=== PATIENT | male | born 1945 | race Caucasian/White ===

== ENCOUNTER 2017-05-26 19:26 | Observation (INO) ==
[2017-05-26] MEDS ORDERED: 0.9 % Sodium Chloride 1,000 ML IVC ONE (19:38)
[2017-05-26] MEDS ORDERED: Famotidine 20 MG/2 ML VIAL IVP ONE (19:39)
[2017-05-26] MEDS ORDERED: Pantoprazole 40 MG in 0.9 % Sodium Chloride Mini Bag 100 ML IVC SCH (19:45)
--- NOTE | 2017-05-26 19:57 | Emergency Department Note ---
Disposition Clinical Impression: Gastroenteritis, Drug-induced nausea and vomiting Disposition: Admitted As Inpatient Condition: Fair Referrals: NONE,PCP [Primary Care Provider] - Forms: ED Satisfaction Letter Time of Disposition: 21:13 (admit [facility] fariha) Nausea/Vomiting/Diarrhea HPI - General Chief complaint: ED Nausea/Vomiting/Diarrhea Stated complaint: vomiting and dizzy Time Seen by Provider: 05/26/17 19:30 Source: patient Limitations: no limitations - History of Present Illness HPI Narrative: [id number] male who is traveling from one facility to his home in [facility] when he became lightheaded and dizzy started having episodes of vomiting denies any chest pain chest pressure coughed up some black tarry-type vomitus material denies any blurred vision double vision loss vision denies numbness tingling or weakness denies any additional complaints Pt Subjective Complaint: nausea, vomiting Onset (ago): hour(s) (2) Description of emesis: food contents, blood-streaked, bloody Number of episodes of emesis: 3 Associated Abdominal Pain: No Worsens with: nonthing Associated symptoms: Reports: nausea/vomiting. Denies: myalgias, chest pain, cough, diaphoresis, fever/chills, headaches, loss of appetite, rash, dysuria, shortness of breath, syncope, weakness - Related Data Allergies Allergy/AdvReac Type Severity Reaction Status Date / Time No Known Allergies Allergy Verified 05/26/17 19:41 All systems ED: reviewed and negative except as stated. Constitutional: Denies: fever ENT ED: Denies: throat pain Cardiovascular: Denies: chest pain Respiratory: Denies: cough, dyspnea Gastrointestinal: Reports: nausea, vomiting. Denies: abdominal pain, diarrhea Genitourinary: Denies: urgency, dysuria Integumentary: Denies: rash Past Medical History - Past Medical History Medical history: Reports: hyperlipidemia Psychiatric history: Reports: no psych history - Social History Smoking Status: Former smoker Smokeless Tobacco Status: No Alcohol use: Reports: none Drug use: Reports: marijuana Physical Exam - General Limitations: no limitations General appearance: alert - Eye Eye exam: Absent: scleral icterus, conjunctival injection - ENT ENT exam: normal oropharynx, mucous membranes moist, TM's normal bilaterally - Respiratory Respiratory exam: Present: normal lung sounds bilaterally - Cardiovascular Cardiovascular exam: Present: regular rate, normal rhythm - Abdominal Exam Abdominal exam: Present: soft, Non-Tender. Absent: guarding, rebound - Psychiatric Psychiatric exam: Present: normal affect - Skin Skin exam: Present: warm, intact Course Course Narrative: Arrival did have coffee-ground emesis. He was started on Pepcid and Protonix. Labs were ordered care was transferred to Dr. Barros. - Reevaluation(s) Reevaluation #1: Patient had no further episodes of vomiting here in the emergency room he is alert answers questions probably does not appear to be dizzy at this time he is thin and frail does appear to be" though he is not feeling well denies any chest pain on my examination has little epigastric discomfort his skin is warm and dry pupils round there is tympanic membranes are pink and moist supple trachea is midline chest clear to observation heart regular rate and rhythm abdomen soft supple no guarding or rebound rigidity no pulsatile mass that the patient be admitted for observation services of Dr. Lakhani for monitoring if he does start developing acute vomiting blood we will transfer him at that time Vital Signs Temperature 97.5 F L 05/26/17 19:27 Pulse Rate 76 05/26/17 19:27 Respiratory Rate 20 05/26/17 19:27 Blood Pressure 141/86 05/26/17 19:27 O2 Sat by Pulse Oximetry 100 05/26/17 19:27 Temperature 97.5 F L 05/26/17 19:27 Pulse Rate 74 05/26/17 20:32 Respiratory Rate 20 05/26/17 20:32 Blood Pressure 137/90 05/26/17 20:32 O2 Sat by Pulse Oximetry 75 05/26/17 20:32 Oxygen Delivery Oxygen Delivery Room Air Nausea/Vomiting/Diarrhea - Lab Data Result diagrams: 05/26/17 19:59 05/26/17 19:59 Lab Results 05/26/17 05/26/17 05/26/17 Range/Units 19:59 19:59 19:59 WBC 15.0 H (4.3-11.1) K/mcL RBC 4.41 (4.19-5.50) M/mcL Hgb 13.4 (12.9-16.9) g/dL Hct 39.5 (37.5-50.1) % MCV 89.6 (83.0-100.0) fL MCH 30.4 (28.0-33.3) pg MCHC 33.9 (31.6-35.5) g/dL RDW 13.2 (11.5-14.5) % Plt Count 313 (140-400) K/mcL MPV 8.4 L (9.4-12.4) fL Immature Gran % 0.8 (0-4) % Seg Neutrophils % 75.7 % Lymphocytes % 16.4 % Monocytes % 6.1 % Eosinophils % 0.7 % Basophils % 0.3 % Neutrophils # 11.4 H (1.6-8.9) K/mcL Lymphocytes # 2.5 (0.6-4.6) K/mcL Monocytes # 0.9 (0.0-1.3) K/mcL Eosinophils # 0.1 (0.0-0.6) K/mcL Basophils # 0.1 (0.0-0.2) K/mcL PT 11.3 (9.4-12.1) Seconds INR 1.1 APTT 26.0 (26.0-36.0) Seconds Sodium 137 (136-145) mEq/L Potassium 3.5 (3.5-5.1) mEq/L Chloride 104 (98-107) mEq/L Carbon Dioxide 21 L (23-29) mEq/L BUN 18 (8-23) mg/dL Creatinine 1.16 (0.70-1.30) mg/dL Est GFR ( Amer) > 60 (> 60) Est GFR (Non-Af Amer) > 60 (> 60) BUN/Creatinine Ratio 16 (6-26) Glucose 172 H (70-105) mg/dL Calculated Osmolality 290 (280-300) Calcium 9.3 (8.6-10.3) mg/dL Total Bilirubin 0.6 (0.3-1.0) mg/dL AST 23 (13-39) Units/L ALT 20 (7-52) Units/L Alkaline Phosphatase 59 (34-104) Units/L Serum Total Protein 7.0 (6.4-8.9) g/dL Albumin 4.2 (3.5-5.7) g/dL Globulin 2.8 (2.4-3.5) g/dL Albumin/Globulin Ratio 1.5 (1.1-2.2) Lipase (11-82) Units/L 05/26/17 Range/Units 19:59 WBC (4.3-11.1) K/mcL RBC (4.19-5.50) M/mcL Hgb (12.9-16.9) g/dL Hct (37.5-50.1) % MCV (83.0-100.0) fL MCH (28.0-33.3) pg MCHC (31.6-35.5) g/dL RDW (11.5-14.5) % Plt Count (140-400) K/mcL MPV (9.4-12.4) fL Immature Gran % (0-4) % Seg Neutrophils % % Lymphocytes % % Monocytes % % Eosinophils % % Basophils % % Neutrophils # (1.6-8.9) K/mcL Lymphocytes # (0.6-4.6) K/mcL Monocytes # (0.0-1.3) K/mcL Eosinophils # (0.0-0.6) K/mcL Basophils # (0.0-0.2) K/mcL PT (9.4-12.1) Seconds INR APTT (26.0-36.0) Seconds Sodium (136-145) mEq/L Potassium (3.5-5.1) mEq/L Chloride (98-107) mEq/L Carbon Dioxide (23-29) mEq/L BUN (8-23) mg/dL Creatinine (0.70-1.30) mg/dL Est GFR ( Amer) (> 60) Est GFR (Non-Af Amer) (> 60) BUN/Creatinine Ratio (6-26) Glucose (70-105) mg/dL Calculated Osmolality (280-300) Calcium (8.6-10.3) mg/dL Total Bilirubin (0.3-1.0) mg/dL AST (13-39) Units/L ALT (7-52) Units/L Alkaline Phosphatase (34-104) Units/L Serum Total Protein (6.4-8.9) g/dL Albumin (3.5-5.7) g/dL Globulin (2.4-3.5) g/dL Albumin/Globulin Ratio (1.1-2.2) Lipase 24 (11-82) Units/L S.B.A.R. - S.B.A.R. Transition of Care: Dr Gao Background: Presenting Complaint, Relevant PMH, Meds, & Allergies Assessment: Vital Signs, Course and respsone to treatment, Exam Concerns Recommendation: Barrier(s) to disposition, Recommendation based on pending studies, treatments, or consults Will Repor Time: 19:59
[2017-05-26 20:06] LABS: Basophils # 0.1 K/mcL (0.0-0.2); Basophils % 0.3 %; Eosinophils # 0.1 K/mcL (0.0-0.6); Eosinophils % 0.7 %; Hematocrit 39.5 % (37.5-50.1); Hemoglobin 13.4 g/dL (12.9-16.9); Immature Granulocytes % 0.8 % (0-4); Lymphocytes # 2.5 K/mcL (0.6-4.6); Lymphocytes % 16.4 %; Mean Corpuscular HGB Conc 33.9 g/dL (31.6-35.5); Mean Corpuscular Hemoglobin 30.4 pg (28.0-33.3); Mean Corpuscular Volume 89.6 fL (83.0-100.0); Mean Platelet Volume 8.4 fL (9.4-12.4); Monocytes # 0.9 K/mcL (0.0-1.3); Monocytes % 6.1 %; Neutrophils # 11.4 K/mcL (1.6-8.9); Platelet Count 313 K/mcL (140-400); Red Blood Count 4.41 M/mcL (4.19-5.50); Red Cell Distribution Width 13.2 % (11.5-14.5); Segmented Neutrophils % 75.7 %
[2017-05-26 20:12] LABS: INR 1.1; Prothrombin Time 11.3 Seconds (9.4-12.1)
[2017-05-26 20:24] LABS: Alanine Aminotransferase 20 Units/L (7-52); Albumin 4.2 g/dL (3.5-5.7); Albumin/Globulin Ratio 1.5 (1.1-2.2); Alkaline Phosphatase 59 Units/L (34-104); Aspartate Amino Transferase 23 Units/L (13-39); BUN/Creatinine Ratio 16 (6-26); Bilirubin,Total 0.6 mg/dL (0.3-1.0); Blood Urea Nitrogen 18 mg/dL (8-23); Calcium 9.3 mg/dL (8.6-10.3); Carbon Dioxide 21 mEq/L (23-29); Chloride 104 mEq/L (98-107); Globulin 2.8 g/dL (2.4-3.5); Glucose 172 mg/dL (70-105); Osmolality,Calculated 290 (280-300); Potassium 3.5 mEq/L (3.5-5.1); Sodium 137 mEq/L (136-145); eGFR For Non-African Americans > 60 (> 60)
[2017-05-26] MEDS ORDERED: Naloxone 0.4 MG/ML INJ IVP PRN (21:59)
[2017-05-26] MEDS ORDERED: 0.9 % Sodium Chloride 1,000 ML IVC SCH (21:59)
[2017-05-26] MEDS: Pantoprazole 40 MG in 0.9 % Sodium Chloride Mini Bag 100 ML IVC SCH (23:21)
[2017-05-26] MEDS: Ondansetron 4 MG/2 ML VIAL IVP SCH (23:29)
[2017-05-27] MEDS: Pantoprazole 40 MG in 0.9 % Sodium Chloride Mini Bag 100 ML IVC SCH ×2 (02:40→10:37)
[2017-05-27] MEDS: Ondansetron 4 MG/2 ML VIAL IVP SCH ×2 (03:19→10:37)
[2017-05-27] MEDS ORDERED: Famotidine 20 MG/2 ML VIAL IVP SCH (06:00)
[2017-05-27 06:37] VITALS: BP 122/72
[2017-05-27 09:10] LABS: Basophils % 0.4 %; Eosinophils # 0.1 K/mcL (0.0-0.6); Eosinophils % 0.6 %; Hematocrit 39.9 % (37.5-50.1); Immature Granulocytes % 0.4 % (0-4); Mean Corpuscular HGB Conc 32.6 g/dL (31.6-35.5); Mean Corpuscular Hemoglobin 29.9 pg (28.0-33.3); Mean Corpuscular Volume 91.7 fL (83.0-100.0); Mean Platelet Volume 8.7 fL (9.4-12.4); Monocytes # 0.8 K/mcL (0.0-1.3); Monocytes % 7.4 %; Neutrophils # 7.6 K/mcL (1.6-8.9); Platelet Count 313 K/mcL (140-400); Red Blood Count 4.35 M/mcL (4.19-5.50); Red Cell Distribution Width 13.5 % (11.5-14.5); Segmented Neutrophils % 72.2 %
[2017-05-27 10:59] LABS: BUN/Creatinine Ratio 13 (6-26); Blood Urea Nitrogen 14 mg/dL (8-23); Calcium 8.5 mg/dL (8.6-10.3); Carbon Dioxide 26 mEq/L (23-29); Chloride 108 mEq/L (98-107); Glucose 116 mg/dL (70-105); Osmolality,Calculated 291 (280-300); Potassium 3.7 mEq/L (3.5-5.1); Sodium 140 mEq/L (136-145); eGFR For Non-African Americans > 60 (> 60)
--- NOTE | 2017-05-27 11:52 | Internal Med History&Physical ---
Date of Encounter: 05/27/17 Time of Encounter: 11:25 Assessment and Plan (1) Gastroenteritis Current visit: Yes Status: Acute He has been started on IV fluids. Antiemetics will be given as needed. Internal Medicine - H&P: [facility] Chief complaint: Vomiting Admitted From: Emergency Dept Plans for Post Hospital Care: Home History of present illness: Mr. Alegria is a 71 year old male who came to the emergency room by squad after he became nauseated and had several episodes of vomiting while driving to his home in [facility] from [place]. He noted at least one of the episodes of vomiting had dark material but not obviously blood. He was evaluated in emergency room and found to have leukocytosis with minimal left shift. He was admitted to [facility] floor for ongoing care needs. He reports he had a similar but less severe episode of nausea without vomiting approximately 2 weeks ago. He reports occasional ibuprofen use but none for the last 4-5 days. He has not had documented peptic ulcer disease. He states he has not drunk alcohol in 30 years. He denies disorders of his liver gallbladder or exocrine pancreas. He states he feels back to his baseline now and wishes to be discharged home. Past Med Surg Social Fam HX - Past Medical History Medical history: hyperlipidemia Psychiatric history: no psych history - Social History Smoking Status: Former smoker Smokeless Tobacco Status: No Alcohol use: none Drug use: marijuana Internal Medicine - H&P: Meds 3 Allergy/AdvReac Type Severity Reaction Status Date / Time No Known Allergies Allergy Verified 05/26/17 19:41 All Systems PM: A 10-system review of systems was performed and is negative for pertinent findings except as documented above in the HPI. Review of systems: Gen.: His weight has been stable the past few months Cardiovascular: He denies [place] hypertension heart failure angina DVT or pulmonary embolus Respiratory: He smoked from age [age] up to 1 pack per day. He has had PFTs and was told he had COPD but does not use home oxygen. Reports he has had a "spot" on his lung that has been followed by [facility] with regular CT scans. 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 He denies gout or other bone joint or muscle disorders. - Constitutional Vitals: Temp Pulse Resp BP Pulse Ox 97.5 F L 68 17 122/72 97 05/27/17 06:36 05/27/17 06:36 05/27/17 06:36 05/27/17 06:36 05/27/17 06:36 Exam: Gen.: He is a well-developed well-nourished male resting In bed who appears in no acute distress at present time HEENT: Head is atraumatic and normocephalic. Eyes: EOMI. There is no scleral icterus. Mouth: Mucosa is moist. Neck: Supple and nontender. There is no thyromegaly or adenopathy noted. Heart: Regular without murmurs gallops or ectopics Lungs: No wheezes or crackles are heard. Abdomen: Soft and nontender. No masses or guarding are noted. Extremities: There is no cyanosis edema or clubbing noted. Dorsalis pedis and posttibial pulses are 1-2 over 2 bilaterally. Neurologic: Mental status: He is talkative and a good historian. Cranial nerves : Smile is symmetric. Forehead wrinkles bilaterally. Tongue protrudes midline. EOMI. Motor: There is no pronator drift. Cerebellar: Finger to nose is intact bilaterally. Skin: Warm and dry Internal Med - H&P Results - Labs CBC & Chem 7: 05/27/17 07:50 05/27/17 07:50 Labs: Short CBC 05/27/17 Range/Units 07:50 WBC 10.6 (4.3-11.1) K/mcL Hgb 13.0 (12.9-16.9) g/dL Hct 39.9 (37.5-50.1) % Plt Count 313 (140-400) K/mcL Neutrophils # 7.6 (1.6-8.9) K/mcL BMP 05/27/17 07:50 Sodium 140 Potassium 3.7 Chloride 108 H Carbon Dioxide 26 BUN 14 Creatinine 1.05 Glucose 116 H Calcium 8.5 L Cardiac Enzymes 05/27/17 05/27/17 Range/Units 01:45 07:50 Troponin I < 0.03 < 0.03 (< 0.04) ng/mL
--- NOTE | 2017-05-27 11:59 | Discharge Summary ---
Date of Encounter: 05/27/17 Time of Encounter: 11:25 - Discharge Diagnosis (1) Gastroenteritis Priority: Primary Status: Acute - Discharge Medications Allergies/Adverse Reactions: 3 Allergy/AdvReac Type Severity Reaction Status Date / Time No Known Allergies Allergy Verified 05/26/17 19:41 Date of admission: 05/26/17 21:21 Primary care physician: PCP NONE - Patient Status Disposition: Home, Self-Care Condition: Fair Functional capacity at discharge: independent ambulation Overall status at discharge: patient is progressing back to baseline - Discharge Instructions Follow Up With: NONE,PCP [Primary Care Provider] - 1 week - Diet and Activity Activity: resume usual activities as tolerated Diet: advance to your usual diet Hospital course: Mr. Alegria is a 71 year old male who came to the emergency room by squad after he became nauseated and had several episodes of vomiting while driving to his home in [place] [facility] from [place]. He noted at least one of the episodes of vomiting had dark material but not obviously blood. He was evaluated in emergency room and found to have leukocytosis with minimal left shift. He was admitted to [facility] for ongoing care needs. Initial orders were written by the emergency room physician. I saw him on May 27 and performed the history physical and discharge. He had no further vomiting after arriving to [facility]. Follow-up labs on May 27 showed normalization of WBC with no left shift present. By the time I saw him he stated he felt back to his baseline and had no complaints. He wished to be discharged home which I feel is reasonable. I encouraged him to decrease his use of NSAIDs. Follow with his PCP within one week. - Time Spent with Patient Total time spent providing and/or coordinating discharge services: - Constitutional Vitals: Temp Pulse Resp BP Pulse Ox 97.5 F L 68 17 122/72 97 05/27/17 06:36 05/27/17 06:36 05/27/17 06:36 05/27/17 06:36 05/27/17 06:36
--- NOTE | 2017-05-27 20:56 | Electrocardiograph Report ---
[address] [place], [place] [address] Test Date: 2017-05-26 Pat Name: Ulices Alegria Department: [id number] Room: [facility] Gender: M Loom Starter: : [id number] Requested By: Jorden Ashford Order Number: [id number] Reading MD: Brandon Brandt MD Measurements Intervals [place] Rate: 73 P: 46 WA: 152 QRS: 36 QRSD: 105 T: 60 QT: 412 QTc: 438 Interpretive Statements SINUS RHYTHM Electronically Signed On 05-27-2017 20:55:09 EST by Brandon Brandt MD
== END 2017-05-27 12:20 | disposition home or self-care (01) ==
LOC: EMEROOPIK 19:26 → INPPIK 19:26
PROVIDERS: ADMIT Internal Medicine; ATTEND Internal Medicine